=== PATIENT | female | born 1975 | race Two or more races ===

== ENCOUNTER → 2016-04-03 | Outpatient (CLI) | payer OTHER ==
[2016-04-03 16:57] LABS: ABSOLUTE EOSINOPHILS # (AUTO) 0.2 10^3/uL (0.0-0.6); ABSOLUTE LYMPHOCYTES (AUTO) 1.7 10^3/uL (0.5-4.7); ABSOLUTE MONOCYTES (AUTO) 0.3 10^3/uL (0.1-1.4); ABSOLUTE NEUT (AUTO) 2.9 10^3/uL (1.7-8.2); BASOPHILS % (AUTO) 0.8 % (0-2); EOSINOPHILS % (AUTO) 4.7 % (0-6); HEMATOCRIT 39.2 % (36.0-47.0); HEMOGLOBIN 13.5 g/dL (12.0-15.5); HGB HCT DIFFERENCE 1.3; LYMPHOCYTES % (AUTO) 33.4 % (13-45); MEAN CORPUSCULAR HGB CONC 34.4 g/dL (32.0-36.0); MEAN CORPUSCULAR VOLUME 93 fl (80-97); MONOCYTES % (AUTO) 5.5 % (3-13); RED BLOOD COUNT 4.21 10^6/uL (3.72-5.28); RED CELL DISTRIBUTION WIDTH 13.7 % (11.5-14.0); SEGMENTED NEUTROPHILS % (AUTO) 55.6 % (42-78); WHITE BLOOD COUNT 5.2 10^3/uL (4.0-10.5)
[2016-04-03 17:17] LABS: ALBUMIN 4.2 g/dL (3.5-5.0); BILIRUBIN,TOTAL 0.4 mg/dL (0.2-1.3); TOTAL PROTEIN 6.5 g/dL (6.3-8.2)
== END ==
LOC: OD 15:19
DX: G40.909 Epilepsy, unspecified, not intractable, without status epilepticus (principal)
CPT/HCPCS: 36415; 80076; 80168; 85025

== ENCOUNTER → 2016-05-31 | Outpatient (CLI) | payer OTHER ==
[2016-05-31 12:35] LABS: ABSOLUTE EOSINOPHILS # (AUTO) 0.1 10^3/uL (0.0-0.6); ABSOLUTE MONOCYTES (AUTO) 0.4 10^3/uL (0.1-1.4); ABSOLUTE NEUT (AUTO) 4.1 10^3/uL (1.7-8.2); BASOPHILS % (AUTO) 0.5 % (0-2); EOSINOPHILS % (AUTO) 1.7 % (0-6); HEMATOCRIT 44.5 % (36.0-47.0); HEMOGLOBIN 15.2 g/dL (12.0-15.5); HGB HCT DIFFERENCE 1.1; LYMPHOCYTES % (AUTO) 30.3 % (13-45); MEAN CORPUSCULAR HEMOGLOBIN 32.4 pg (27.0-33.4); MEAN CORPUSCULAR HGB CONC 34.2 g/dL (32.0-36.0); MEAN CORPUSCULAR VOLUME 95 fl (80-97); MONOCYTES % (AUTO) 5.5 % (3-13); RED CELL DISTRIBUTION WIDTH 13.2 % (11.5-14.0); WHITE BLOOD COUNT 6.6 10^3/uL (4.0-10.5)
[2016-05-31 13:04] LABS: ALANINE AMINOTRANSFERASE 22 U/L (9-52); ALBUMIN 4.7 g/dL (3.5-5.0); ALKALINE PHOSPHATASE 85 U/L (38-126); ANION GAP 13 (5-19); ASPARTATE AMINO TRANSFERASE 20 U/L (14-36); BILIRUBIN,TOTAL 0.6 mg/dL (0.2-1.3); BLOOD UREA NITROGEN 12 mg/dL (7-20); CALCIUM 10.2 mg/dL (8.4-10.2); CARBON DIOXIDE 23 mmol/L (22-30); CHLORIDE 103 mmol/L (98-107); CHOLESTEROL 188.87 mg/dL (0-200); CREATININE RESULT 0.74 mg/dL (0.52-1.25); Direct HDL 43 mg/dL (>40); GLUCOSE 94 mg/dL (75-110); POTASSIUM 4.9 mmol/L (3.6-5.0); TOTAL PROTEIN 7.8 g/dL (6.3-8.2); TRIGLYCERIDES 283 mg/dL (<150)
[2016-05-31 13:15] LABS: DIRECT LDL 89 mg/dL (<100)
[2016-05-31 13:16] LABS: VLDL CHOLESTEROL 56.6 mg/dL (10-31)
== END ==
LOC: CCC 10:45
DX: G40.909 Epilepsy, unspecified, not intractable, without status epilepticus (principal); Z79.899 Other long term (current) drug therapy
CPT/HCPCS: 36415; 80053; 80061; 83036; 84443; 85025

== ENCOUNTER 2017-07-07 19:16 | Emergency (ER) | payer MEDICAID, OTHER ==
[2017-07-07 20:35] LABS: ABSOLUTE EOSINOPHILS # (AUTO) 0.1 10^3/uL (0.0-0.6); ABSOLUTE LYMPHOCYTES (AUTO) 1.9 10^3/uL (0.5-4.7); ABSOLUTE MONOCYTES (AUTO) 0.4 10^3/uL (0.1-1.4); ABSOLUTE NEUT (AUTO) 3.2 10^3/uL (1.7-8.2); BASOPHILS % (AUTO) 0.4 % (0-2); EOSINOPHILS % (AUTO) 1.3 % (0-6); HEMATOCRIT 41.7 % (36.0-47.0); HEMOGLOBIN 14.2 g/dL (12.0-15.5); LYMPHOCYTES % (AUTO) 34.9 % (13-45); MEAN CORPUSCULAR VOLUME 91 fl (80-97); MONOCYTES % (AUTO) 6.4 % (3-13); PLATELET COUNT 172 10^3/uL (150-450); RED BLOOD COUNT 4.57 10^6/uL (3.72-5.28); RED CELL DISTRIBUTION WIDTH 15.1 % (11.5-14.0); TOTAL CELLS COUNTED % (AUTO) 100 %; WHITE BLOOD COUNT 5.5 10^3/uL (4.0-10.5)
[2017-07-07 20:41] LABS: APPEARANCE,URINE SLIGHTLY-CLOUDY; BILIRUBIN,URINE NEGATIVE (NEGATIVE); COLOR,URINE YELLOW; GLUCOSE, URINE NEGATIVE (NEGATIVE); KETONES,URINE NEGATIVE (NEGATIVE); LEUKOCYTE ESTERASE,URINE NEGATIVE (NEGATIVE); NITRITE,URINE NEGATIVE (NEGATIVE); PROTEIN,URINE NEGATIVE (NEGATIVE); URINE SPECIFIC GRAVITY 1.014; UROBILINOGEN,URINE NEGATIVE mg/dL (<2.0)
[2017-07-07 20:55] LABS: ALANINE AMINOTRANSFERASE 37 U/L (9-52); ALKALINE PHOSPHATASE 76 U/L (38-126); ANION GAP 11 (5-19); ASPARTATE AMINO TRANSFERASE 34 U/L (14-36); BILIRUBIN,DIRECT 0.3 mg/dL (0.0-0.4); BILIRUBIN,TOTAL 0.4 mg/dL (0.2-1.3); BLOOD UREA NITROGEN 4 mg/dL (7-20); CALCIUM 9.9 mg/dL (8.4-10.2); CARBON DIOXIDE 27 mmol/L (22-30); CHLORIDE 107 mmol/L (98-107); GLUCOSE 104 mg/dL (75-110); LIPASE 84.3 U/L (23-300); POTASSIUM 4.1 mmol/L (3.6-5.0); SODIUM 144.8 mmol/L (137-145); TOTAL PROTEIN 7.1 g/dL (6.3-8.2)
[2017-07-07] MEDS ORDERED: NORMAL SALINE 1000 ML 1,000 ML IV ONE (20:58)
--- NOTE | 2017-07-07 21:00 | ER Document Report ---
ED Medical Screen (RME) - General Chief Complaint: Lower Abdominal Pain Stated Complaint: PELVIC PAIN Time Seen by Provider: 07/07/17 20:58 Notes: Patient is currently on Clomid to try and get . She states she had 3 positive test at home but a negative one at the [facility] office today. She states her [employer] doctor referred her here to the emergency department to rule out an ectopic. Patient request a serum quantitative hCG. She has lower abdominal severe pelvic pain. She has no vaginal discharge or bleeding. No vomiting. TRAVEL OUTSIDE OF THE [place] IN LAST 30 DAYS: No - Related Data Allergies/Adverse Reactions: codeine Allergy (Verified 07/07/17 19:24) iodine Allergy (Verified 07/07/17 19:24) latex Allergy (Verified 07/07/17 19:24) Penicillins Allergy (Verified 07/07/17 19:24) Past Medical History - Social History Chew tobacco use (# tins/day): Yes Frequency of alcohol use: None Renal/ Medical History: Denies: Hx Peritoneal Dialysis Physical Exam - Vital signs Vitals: Temp Pulse Resp BP Pulse Ox 97.9 F 81 16 100/67 100 07/07/17 19:38 07/07/17 19:38 07/07/17 19:38 07/07/17 19:38 07/07/17 19:38 Course - Vital Signs Vital signs: Temp Pulse Resp BP Pulse Ox 97.9 F 81 16 100/67 100 07/07/17 19:38 07/07/17 19:38 07/07/17 19:38 07/07/17 19:38 07/07/17 19:38 - Laboratory Result Diagrams: 07/07/17 20:05 07/07/17 20:05 Laboratory results interpreted by me: 07/07/17 07/07/17 20:05 20:05 RDW 15.1 H Urine Ascorbic Acid 40 H
--- NOTE | 2017-07-07 22:35 | ER Document Report ---
ED General - General Chief Complaint: Lower Abdominal Pain Stated Complaint: PELVIC PAIN Time Seen by Provider: 07/07/17 20:58 Notes: Patient is a 41-year-old female who presents with complaint of pelvic pain. Pelvic pains and left sides been ongoing for approximately 2 weeks. No vomiting. No diarrhea. No vaginal bleeding or discharge. She proximally 5 days late on her menstrual period. She is currently on Clomid. This is actually being managed by her primary care doctor. She says she does not see an [employer] doctor. She says since starting Clomid she has been having some cramping and pain in the left lower quadrant. She had positive test last week. And then again this week. Today she rate 1 for repeat evaluation she was still having pain in her test was negative. She is therefore referred to the ER by her primary care doctor. She has not had an ultrasound. She has not had a pelvic exam. She denies any fevers. No other complaints at this time. TRAVEL OUTSIDE OF THE [place] IN LAST 30 DAYS: No - Related Data Allergies/Adverse Reactions: codeine Allergy (Verified 07/07/17 19:24) iodine Allergy (Verified 07/07/17 19:24) latex Allergy (Verified 07/07/17 19:24) Penicillins Allergy (Verified 07/07/17 19:24) Past Medical History - Social History Smoking Status: Former Smoker Chew tobacco use (# tins/day): Yes Frequency of alcohol use: None Drug Abuse: None Family History: Reviewed & Not Pertinent Patient has suicidal ideation: No Patient has homicidal ideation: No Renal/ Medical History: Denies: Hx Peritoneal Dialysis Review of Systems - Review of Systems Notes: My Normal Review Basic REVIEW OF SYSTEMS: CONSTITUTIONAL : Denies fever, chills, or sweats. Denies recent illness. RESPIRATORY: Denies cough, cold, or chest congestion. Denies shortness of breath, difficulty breathing, or wheezing. GASTROINTESTINAL: Pain over left lower quadrant and left pelvis. Denies nausea , vomiting, or diarrhea. GENITOURINARY: Denies difficulty urinating, painful urination, burning, frequency, or blood in urine. FEMALE GENITOURINARY: Denies vaginal bleeding, abnormal or irregular periods. Has left sided pelvic pain MUSCULOSKELETAL: Denies neck or back pain or joint pain or swelling. SKIN: Denies rash or skin lesions. NEUROLOGICAL: Denies altered mental status or loss of consciousness. ALL OTHER SYSTEMS REVIEWED AND NEGATIVE. Physical Exam - Vital signs Vitals: Temp Pulse Resp BP Pulse Ox 97.9 F 81 16 100/67 100 07/07/17 19:38 07/07/17 19:38 07/07/17 19:38 07/07/17 19:38 07/07/17 19:38 - Notes Notes: General Appearance: Well nourished, alert, cooperative, no acute distress, moderate obvious discomfort. Vitals: reviewed, See vital signs table. Eyes: PERRL, EOMI, Conjuctiva clear Mouth: No decreasd moisture Lungs: No wheezing, No rales, No rhonci, No accessory muscle use, good air exchange bilaterally. Heart: Normal rate, Regular rythm, No murmur, no rub Abdomen: Normal BS, soft, No rigidity, Some left lower quadrant pain No guarding , no rebound, Pelvic: Normal external genitalia. No abnormal vaginal discharge. No blood in vaginal vault. No pain on exam Extremities: strength 5/5 in all extremities, good pulses in all extremities, no swelling or tenderness in the extremities, no edema. Skin: warm, dry, appropriate color, no rash Neuro: speech clear, oriented x 3, normal affect, responds appropriately to questions. Course - Re-evaluation Re-evalutation: 07/07/17 23:18 Patient just had a seizure at the end of her ultrasound. She has been off her seizure medications now and these were replaced with Valium because she is trying to get . Her previous seizure medications are phenobarbital as well as Tegretol. She had a dose of Valium before going over to the ultrasound. I informed her that she could take this. She said that she was late in taking this. Seizure lasted approximately 2 minutes. She had a very short postictal phase and now is awake and alert and well-appearing. I will give her IV loading dose phenobarbital being that she says this is what typically controls her seizures are best. 07/08/17 01:46 Patient has had no further seizures. I went in depth more by her seizure history. Patient was on phenobarbital and Trileptal prior to being stopped approximately 9 months ago. She was then switched to Valium 10 mg 4 times a day. Patient says that she actually has not had the Valium in the last week until she took 1 dose today because "I have been having some much pain". Pain started after she started the Clomid. She says that despite being on the Valium over the last several months she is has a seizure almost every day. She said when she was on the Trileptal and phenobarbital she never had seizures and was seizure-free for approximately a year while on these medications. She is not seeing a neurologist currently. The only doctor she sees is her family medicine doctor. They are managing both her seizures and her attempt at getting . I informed the patient that with her seizure history that she is more high risk for the attempt to get and therefore she should follow with present [facility] doctor as well as neurologist. I informed her that there more specifically trained in her care that she needs. Patient agrees with this. Patient has been off her Valium now for a week and therefore I do not feel that it needs to be tapered down. We will start her back on low doses of phenobarbital and Tegretol and have her follow-up with her doctor for recheck of her levels and have them adjust medications appropriately. I will refer her to both neurologist [facility]. She said she seen Dr. Shen in the past and she likes Dr. Shen therefore I will refer her back to Dr. Shen. Encourage patient to return to ER if she has recurrent seizures, fevers, worsening pain, or if she feels unwell. I suspect her pelvic pain is likely is related to the Clomid being that the pain started when she received the Clomid. Patient also has some signs of bacterial vaginosis on wet prep and therefore we will treat her bacterial vaginosis. 07/08/17 01:49 Dictation of this chart was performed using voice recognition software; therefore, there may be some unintended grammatical errors. - Vital Signs Vital signs: Temp Pulse Resp BP Pulse Ox 97.9 F 81 11 L 127/77 H 99 07/07/17 19:38 07/07/17 19:38 07/07/17 23:24 07/07/17 23:24 07/07/17 23:24 - Laboratory Result Diagrams: 07/07/17 20:05 07/07/17 20:05 Laboratory results interpreted by me: 04/16/18 04/16/18 04/16/18 20:05 20:05 20:05 RDW 15.1 H BUN 4 L Urine Ascorbic Acid 40 H Discharge - Discharge Clinical Impression: Pelvic pain, Bacterial vaginosis, Seizure Condition: Good Disposition: HOME, SELF-CARE Additional Instructions: Please stop taking the Valium. You have now been off the Valium for a week and therefore you should not need to taper down at this point. I have started you back on Phenobarbital and Tegretol being that these managed your seizures well in the past. I will start you off at low dosages of both these medications. Your levels will needed to be checked and these medications titrated appropriately. Please be aware these meds can make you sleepy. You should never drive a motor vehicle due to your history of seizures. Please stop the Clomid and follow up with an OB physician for further options on how to manage getting . I have also included a referral to the neurologist, Dr. Sherwood, to follow up and help manage your seizures. Wait to start trying to get until you have discussed your options with both the OB physician and neurologist. Please return tot he ER if you have worsening pain, fevers, intractable seizures, or feel unwell. Prescriptions: Ketorolac Tromethamine [Toradol 10 mg Tablet] 10 mg PO Q8HP PRN #12 tablet PRN Reason: Pain Scale Of 5 Carbamazepine [Tegretol 200 Mg Tablet] 200 mg PO BID #14 tablet Metronidazole [Flagyl 500 mg Tablet] 500 mg PO BID #14 tablet Phenobarbital [Phenobarbital 64.8 Mg Tablet] 64.8 mg PO BID #14 tablet Referrals: NOBLE SHERWOOD MD [NO LOCAL MD] - Follow up in 3-5 days EMANI SHEN MD [ACTIVE STAFF] - Follow up in 3-5 days
[2017-07-07] MEDS ORDERED: PHENOBARBITAL INJ 65 MG/ML VIAL IV ONE ×2 (23:15→23:16)
--- NOTE | 2017-07-07 23:49 | RADIOLOGY REPORT (SQ) ---
EXAM DESCRIPTION: U/S NON OB PEL TV W/DOPPLER COMPLETED DATE/TIME: 07/07/2017 11:16 pm REASON FOR STUDY: pelvic pain COMPARISON: None. TECHNIQUE: Dynamic and static grayscale images acquired of the pelvis via transvaginal approach and recorded on PACS. Additional selected color Doppler and spectral images recorded. LIMITATIONS: None. FINDINGS: UTERUS: Contour normal. No mass. ENDOMETRIAL STRIPE: No focal or generalized thickening. No masses. CERVIX: No nabothian cysts. RIGHT ADNEXUM: 3.4 cm complex right ovarian cyst. RIGHT OVARY AND DOPPLER: Normal size. .Normal arterial vascular flow without evidence for torsion. LEFT ADNEXUM: 2.8 cm complex left ovarian cyst. LEFT OVARY AND DOPPLER: Normal size. No worrisome masses. Normal arterial vascular flow without evide nce for torsion. FREE FLUID: Small amount of endometrial and cul-de-sac free fluid. OTHER: No other significant finding. MEASUREMENTS: UTERUS: 9.9 x 6.8 x 4.5 cm ENDOMETRIAL STRIPE: 8.3 mm RIGHT OVARY: 4.5 x 4.2 x 3.3 cm LEFT OVARY: 3.5 x 3.2 x 3.2 cm IMPRESSION: Bilateral complex ovarian cysts. Small amount of endometrial and cul-de-sac free fluid. TECHNICAL DOCUMENTATION: JOB ID: [id number] [id number] 2010 [employer]- All Rights Reserved Reading location - IP/workstation name: [email or web address]
[2017-07-08 01:19] LABS: RBCS (WET MOUNT) RARE RBCS SEEN; T.VAGINALIS (WET MOUNT) NO TRICHOMONAS SEEN; WBCS (WET MOUNT) RARE WBCS SEEN; YEAST (WET MOUNT) NO YEAST SEEN
[2017-07-08 01:20] LABS: BACTERIA (WET MOUNT) 3+ BACTERIA SEEN; EPITHELIALS (WET MOUNT) 3+ EPITHELIALS SEEN
[2017-07-08] MEDS ORDERED: METRONIDAZOLE 500 MG TABLET PO ONE (01:20)
[2017-07-08] MEDS ORDERED: KETOROLAC TROMETHAMINE INJ/PF 30 MG/1 ML SDV IV ONE (01:20)
[2017-07-08] MEDS ORDERED: KETOROLAC TROMETHAMINE INJ/PF 30 MG/1 ML SDV ONE (01:29)
[2017-07-08 02:21] VITALS: BP 100/62
[2017-07-08 02:45] LABS: CHLAM PCR NOT DETECTED (NOT DETECT); GON PCR NOT DETECTED (NOT DETECT)
== END 2017-07-08 02:16 | disposition home or self-care (01) ==
LOC: ER 19:16
DX: N76.0 Acute vaginitis (principal); B96.89 Other specified bacterial agents as the cause of diseases classified elsewhere; G40.909 Epilepsy, unspecified, not intractable, without status epilepticus; R10.2 Pelvic and perineal pain; R10.30 Lower abdominal pain, unspecified; Z88.6 Allergy status to analgesic agent; Z91.040 Latex allergy status; Z87.891 Personal history of nicotine dependence
CPT/HCPCS: 99284; 96361; 96374; 96375; 36415; 87210; 84702; 83690; 85025; 80053; 81001; 87491; 87591; 76830; 93976; J1885; J2560; J3490; J7030

== ENCOUNTER 2018-04-08 12:22 | Inpatient (IN) | payer SELFPAY ==
--- NOTE | 2018-04-08 12:42 | ER Document Report ---
ED Seizure <DAV GONZALEZ - Last Filed: 04/08/18 14:21> <HERNANDEZ GLOVER - Last Filed: 04/08/18 17:34> - General Stated Complaint: ALTERED MENTAL STATUS Time Seen by Provider: 04/08/18 12:28 Notes: 42-year-old female patient is brought the emergency room by EMS for altered mental status. EMS history is that the patient had a seizure about 10 PM last night and possibly struck her head. She was not acting right at that time, was allowed to go to bed at 11 PM. This morning she continues to be "not acting right". She was brought to the emergency room. Review of records and discussing the case with Ashok ROSAS at [facility], the patient received a prescription for diazepam 10 mg 4 times daily #120 on 03/25/2018. She had been off the Valium for a few months due to insurance reasons. She return to the clinic on 03/30/2018 and voluntarily turned in her diazepam and they disposed of it and they prescribed phenobarbital 100 mg tablets to start at 100mg 3 times daily for 5 days, then 200mg 3 times daily for 5 days. There was not a clear indication for starting her on diazepam 10 mg 4 times daily after she had been off the medication for so many months. This time the patient's speech is deliberate and slurred, she does seem to be under the influence of something. (HERNANDEZ GLOVER) - Related Data Allergies/Adverse Reactions: codeine Allergy (Verified 07/07/17 19:24) iodine Allergy (Verified 07/07/17 19:24) latex Allergy (Verified 07/07/17 19:24) Penicillins Allergy (Verified 07/07/17 19:24) Past Medical History - General Information source: [facility] Records[facility] Social History Smoking Status: Smoker,Current Status Unk Family History: Reviewed & Not Pertinent Neurological Medical History: Reports: Hx Seizures <DAV GONZALEZ - Last Filed: 04/08/18 14:21> Review of Systems - Review of Systems Constitutional: No symptoms reported EENT: No symptoms reported Cardiovascular: No symptoms reported Respiratory: No symptoms reported Gastrointestinal: No symptoms reported Genitourinary: No symptoms reported Female Genitourinary: No symptoms reported Musculoskeletal: No symptoms reported Skin: No symptoms reported Hematologic/Lymphatic: No symptoms reported Neurological/Psychological: See HPI, Seizure -: Yes All other systems reviewed and negative <DAV GONZALEZ - Last Filed: 04/08/18 14:21> Physical Exam <DAV GONZALEZ - Last Filed: 04/08/18 14:21> - Vital signs Vitals: Pulse Resp BP Pulse Ox 74 19 85/53 L 96 04/08/18 12:45 04/08/18 12:45 04/08/18 12:45 04/08/18 12:45 - Notes Notes: Physical Exam: General: Drowsy but alert, seemingly deliberate slurred speech. HEENT: Normocephalic. Atraumatic, no hematoma or step-offs. PERRL. Extraocular movements intact. Oropharynx clear. States there is no where on her head that hurts from the fall yesterday where she reportedly hit her head. Dry oral muc boris. Neck: Supple. Non-tender. Respiratory: No respiratory distress. Clear and equal breath sounds bilaterally. Cardiovascular: Regular rate and rhythm. Abdominal: Normal Inspection. Non-tender. No distension. Normal Bowel Sounds. Back: Non-tender. No deformity or step off. Extremities: Moves all four extremities. Upper extremities: Normal inspection. Normal ROM. Lower extremities: Normal inspection. No edema. Normal ROM. Neurological: Seemingly deliberate slurred speech but alert and oriented x4, able to answer questions and follow commands. Psychological: Bleary eyed, thick slurred deliberate speech. Skin: Warm. Dry. Normal color. (DAV GONZALEZ) Course - Laboratory Result Diagrams: 04/08/18 12:35 04/08/18 12:35 <DAV GONZALEZ - Last Filed: 04/08/18 14:21> - Laboratory Result Diagrams: 04/08/18 12:35 04/08/18 12:35 - Diagnostic Test Radiology reviewed: Image reviewed, Reports reviewed - CT scan is unremarkable. - EKG Interpretation by Me EKG shows normal: Sinus rhythm, [place], Intervals, QRS Complexes. abnormal: ST-T Waves - Jaswant-lateral T abnormalities Rate: Normal - 70 Rhythm: NSR [place]/QRS: Right axis deviation - Consults Dr. Gore Time consulted: 17:00 Consulted provider: will come to ER <HERNANDEZ GLOVER - Last Filed: 04/08/18 17:34> - Re-evaluation Re-evalutation: 04/08/18 15:29 The patient's urine drug screen is positive for benzodiazepines. The history I got from her prescribing doctor was that she returned all of her diazepam when she came to the office on 03/30/2018, after filling the prescription on 03/25/2018. She is obviously getting benzodiazepines from somewhere. Her drug screen is positive for phenobarbital, she is supposed to be taking this medication now. We cannot get drug levels in the emergency room to see if that is part of her mental status problem. (HERNANDEZ GLOVER) - Vital Signs Vital signs: Temp Pulse Resp BP Pulse Ox 98.5 F 73 15 94/64 L 97 04/08/18 16:00 04/08/18 16:00 04/08/18 16:00 04/08/18 16:00 04/08/18 16:00 - Laboratory Laboratory results interpreted by me: 04/08/18 04/08/18 12:35 12:55 Urine Urobilinogen 2.0 H Acetaminophen < 10 L Critical Care Note - Critical Care Note Total time excluding time spent on procedures (mins): 45 <HERNANDEZ GLOVER - Last Filed: 04/08/18 17:34> Discharge <DAV GONZALEZ - Last Filed: 04/08/18 14:21> - Discharge Admitting Provider: Hospitalist Unit Admitted: IMCU <HERNANDEZ GLOVER - Last Filed: 04/08/18 17:34> - Discharge Clinical Impression: Altered mental status Qualifiers: Altered mental status type: unspecified Qualified Code(s): R41.82 - Altered mental status, unspecified Overdose Qualifiers: Encounter type: initial encounter Injury intent: undetermined intent Qualified Code(s): T50.904A - Poisoning by unspecified drugs, medicaments and biological substances, undetermined, initial encounter Hypotension Qualifiers: Hypotension type: unspecified hypotension type Qualified Code(s): I95.9 - Hypotension, unspecified Condition: Stable Disposition: ADMITTED INPATIENT Scribe Attestation: 04/08/18 15:41 I personally performed the services described in the documentation, reviewed and edited the documentation which was dictated to the scribe in my presence, and it accurately records my words and actions. (HERNANDEZ GLOVER)
[2018-04-08 12:51] LABS: ABSOLUTE EOSINOPHILS # (AUTO) 0.1 10^3/uL (0.0-0.6); ABSOLUTE LYMPHOCYTES (AUTO) 1.7 10^3/uL (0.5-4.7); ABSOLUTE MONOCYTES (AUTO) 0.3 10^3/uL (0.1-1.4); ABSOLUTE NEUT (AUTO) 1.9 10^3/uL (1.7-8.2); BASOPHILS % (AUTO) 0.8 % (0-2); EOSINOPHILS % (AUTO) 1.8 % (0-6); HEMATOCRIT 44.3 % (36.0-47.0); HEMOGLOBIN 15.2 g/dL (12.0-15.5); MEAN CORPUSCULAR HEMOGLOBIN 31.8 pg (27.0-33.4); MEAN CORPUSCULAR HGB CONC 34.3 g/dL (32.0-36.0); MEAN CORPUSCULAR VOLUME 93 fl (80-97); MONOCYTES % (AUTO) 7.8 % (3-13); PLATELET COUNT 192 10^3/uL (150-450); RED BLOOD COUNT 4.79 10^6/uL (3.72-5.28); RED CELL DISTRIBUTION WIDTH 12.8 % (11.5-14.0); SEGMENTED NEUTROPHILS % (AUTO) 46.6 % (42-78); TOTAL CELLS COUNTED % (AUTO) 100 %
[2018-04-08 13:13] LABS: APPEARANCE,URINE CLEAR; BILIRUBIN,URINE NEGATIVE (NEGATIVE); COLOR,URINE YELLOW; GLUCOSE, URINE NEGATIVE (NEGATIVE); KETONES,URINE NEGATIVE (NEGATIVE); LEUKOCYTE ESTERASE,URINE NEGATIVE (NEGATIVE); NITRITE,URINE NEGATIVE (NEGATIVE); PROTEIN,URINE NEGATIVE (NEGATIVE); URINE SPECIFIC GRAVITY 1.017
[2018-04-08 13:20] LABS: ALANINE AMINOTRANSFERASE 18 U/L (9-52); ALBUMIN 3.9 g/dL (3.5-5.0); ALKALINE PHOSPHATASE 111 U/L (38-126); ANION GAP 8 (5-19); ASPARTATE AMINO TRANSFERASE 33 U/L (14-36); BILIRUBIN,DIRECT 0.3 mg/dL (0.0-0.4); BILIRUBIN,TOTAL 0.4 mg/dL (0.2-1.3); BLOOD UREA NITROGEN 9 mg/dL (7-20); CALCIUM 8.6 mg/dL (8.4-10.2); CARBON DIOXIDE 29 mmol/L (22-30); CHLORIDE 103 mmol/L (98-107); GLUCOSE 94 mg/dL (75-110); POTASSIUM 4.2 mmol/L (3.6-5.0); SODIUM 139.9 mmol/L (137-145)
--- NOTE | 2018-04-08 13:20 | RADIOLOGY REPORT (SQ) ---
EXAM DESCRIPTION: CT HEAD WITHOUT COMPLETED DATE/TIME: 04/08/2018 1:12 pm REASON FOR STUDY: Altered mental status COMPARISON: None. TECHNIQUE: Axial images acquired through the brain without intravenous contrast. Images reviewed wi th bone, brain and subdural windows. Images stored on PACS. All CT scanners at this facility use dose modulation, iterative reconstruction, and/or weight based d osing when appropriate to reduce radiation dose to as low as reasonably achievable (ALARA). [facility]: Dose Right [facility]: CareDose [facility]: Dose Right [facility]: Teradose 4D [facility]: Kabam RADIATION DOSE: mGy. LIMITATIONS: None. FINDINGS: VENTRICLES: Normal size and contour. CEREBRUM: No masses. No hemorrhage. No midline shift. No evidence for acute infarction. Normal gra y/white matter differentiation. No areas of low density in the white matter. CEREBELLUM: No masses. No hemorrhage. No alteration of density. No evidence for acute infarction. EXTRAAXIAL SPACES: No fluid collections. No masses. ORBITS AND GLOBE: No intra- or extraconal masses. Normal contour of globe without masses. CALVARIUM: No fracture. PARANASAL SINUSES: No fluid or mucosal thickening. SOFT TISSUES: No mass or hematoma. OTHER: No other significant finding. IMPRESSION: NORMAL BRAIN CT WITHOUT CONTRAST. EVIDENCE OF ACUTE STROKE: NO. COMMENT: Quality ID # [id number]: Final reports with documentation of one or more dose reduction techniques (e.g., Automated exposure control, adjustment of the mA and/or kV according to patient size, use of iterative reconstruction technique) TECHNICAL DOCUMENTATION: JOB ID: [id number] [employer]- All Rights Reserved Reading location - IP/workstation name: [email or web address]
[2018-04-08 13:22] LABS: ALCOHOL < 10 mg/dL (NONE DETECTED)
[2018-04-08 13:27] LABS: URINE AMPHETAMINES SCREEN NEGATIVE; URINE BARBITURATES SCREEN UNCONFIRMED POSITIVE; URINE BENZODIAZEPINES SCREEN UNCONFIRMED POSITIVE; URINE COCAINE SCREEN NEGATIVE; URINE MARIJUANA (THC) SCREEN NEGATIVE; URINE METHADONE SCREEN NEGATIVE; URINE PHENCYCLIDINE SCREEN NEGATIVE
[2018-04-08] MEDS: NORMAL SALINE 1000 ML 1,000 ML IV PRN ×2 (14:40→15:50)
[2018-04-08] MEDS ORDERED: PHENYTOIN SODIUM INJ/PF 250 MG/5 ML SDV IV ONE (15:39)
[2018-04-08 16:51] LABS: ACETAMINOPHEN < 10 ug/mL (10-30)
--- NOTE | 2018-04-08 17:54 | EKG REPORT ---
SEVERITY:- BORDERLINE ECG - SINUS RHYTHM BORDERLINE RIGHT AXIS DEVIATION BORDERLINE T ABNORMALITIES, ANT-LAT LEADS : Confirmed by: Enrique Belle 08-Apr-2018 17:54:20
--- NOTE | 2018-04-08 18:05 | RADIOLOGY REPORT (SQ) ---
EXAM DESCRIPTION: CHEST SINGLE VIEW COMPLETED DATE/TIME: 04/08/2018 5:56 pm REASON FOR STUDY: confused,says she was dx w/ PNA recently COMPARISON: None. EXAM PARAMETERS: NUMBER OF VIEWS: One view. TECHNIQUE: Single frontal radiographic view of the chest acquired. RADIATION DOSE: NA LIMITATIONS: None. FINDINGS: LUNGS AND PLEURA: No opacities, masses or pneumothorax. No pleural effusion. MEDIASTINUM AND HILAR STRUCTURES: No masses. Contour normal. HEART AND VASCULAR STRUCTURES: Heart normal in size. Normal vasculature. BONES: No acute findings. HARDWARE: None in the chest. OTHER: No other significant finding. IMPRESSION: NO ACUTE RADIOGRAPHIC FINDING IN THE CHEST. TECHNICAL DOCUMENTATION: JOB ID: [id number] [employer]- All Rights Reserved Reading location - IP/workstation name: [email or web address]
[2018-04-08] MEDS ORDERED: DIAZEPAM INJ 10 MG/2 ML DISP.SYRIN IV PRN (18:14)
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
[2018-04-08] MEDS: HEPARIN SOD (PORCINE) 5,000 UNIT/ML 1 ML SYRINGE SUBCUT SCH (21:22)
[2018-04-08] MEDS: LEVETIRACETAM 500 MG/NACL-ISO 500 MG/100 ML RTUPB IV SCH (21:22)
[2018-04-08] MEDS ORDERED: CEFTRIAXONE 1 GM/D5W RTU 1 GM/50 ML RTUPB IV SCH (22:00)
[2018-04-09] MEDS: LEVETIRACETAM 500 MG/NACL-ISO 500 MG/100 ML RTUPB IV SCH ×2 (09:15→21:27)
[2018-04-09] MEDS: HEPARIN SOD (PORCINE) 5,000 UNIT/ML 1 ML SYRINGE SUBCUT SCH ×2 (09:19→21:27)
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
[2018-04-09] MEDS: HALOPERIDOL LACTATE INJ 5 MG/1 ML VIAL IV PRN (18:49)
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
[2018-04-10] MEDS ORDERED: ACETAMINOPHEN 325 MG TABLET PO PRN (08:51)
[2018-04-10] MEDS ORDERED: KETOROLAC TROMETHAMINE INJ/PF 30 MG/1 ML SDV IV ONE (08:51)
[2018-04-10] MEDS: LEVETIRACETAM 500 MG/NACL-ISO 500 MG/100 ML RTUPB IV SCH (09:25)
[2018-04-10] MEDS: HEPARIN SOD (PORCINE) 5,000 UNIT/ML 1 ML SYRINGE SUBCUT SCH ×2 (09:26→22:20)
[2018-04-10] MEDS ORDERED: DIAZEPAM INJ 10 MG/2 ML DISP.SYRIN IV PRN (16:12)
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
[2018-04-10] MEDS ORDERED: ALPRAZOLAM 0.25 MG TABLET PO ONE (16:45)
[2018-04-10] MEDS: PANTOPRAZOLE SODIUM 40 MG VIAL IV SCH (16:46)
[2018-04-10] MEDS: HALOPERIDOL LACTATE INJ 5 MG/1 ML VIAL IV PRN (16:57)
[2018-04-10] MEDS: FLUOXETINE HCL 20 MG CAPSULE PO SCH (22:20)
[2018-04-10] MEDS: LEVETIRACETAM 500 MG TABLET PO SCH (22:20)
[2018-04-11] MEDS: FLUOXETINE HCL 20 MG CAPSULE PO SCH ×2 (06:18→15:07)
[2018-04-11] MEDS: LEVETIRACETAM 500 MG TABLET PO SCH (11:12)
[2018-04-11] MEDS: PANTOPRAZOLE SODIUM 40 MG VIAL IV SCH (11:12)
[2018-04-11] MEDS: HEPARIN SOD (PORCINE) 5,000 UNIT/ML 1 ML SYRINGE SUBCUT SCH (11:13)
[2018-04-11 15:31] VITALS: BP 97/48
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
== END 2018-04-11 16:50 | disposition home or self-care (01) | DRG 101 ==
LOC: ER 12:22 → EH 17:30 → 3W 19:07
PROVIDERS: ADMIT Internal Medicine; ATTEND Internal Medicine
DX: G40.909 Epilepsy, unspecified, not intractable, without status epilepticus (principal); F41.9 Anxiety disorder, unspecified; Z88.6 Allergy status to analgesic agent; Z88.0 Allergy status to penicillin; Z88.9 Allergy status to unspecified drugs, medicaments and biological substances; Z91.040 Latex allergy status; M32.9 Systemic lupus erythematosus, unspecified; Z87.820 Personal history of traumatic brain injury; Z79.899 Other long term (current) drug therapy; R13.10 Dysphagia, unspecified; V89.2XXS Person injured in unspecified motor-vehicle accident, traffic, sequela
CPT/HCPCS: 36415; 70450; 71045; 80053; 80184; 80307; 81001; 84703; 85025; 93005; 93010; 95819; 96361; 96365; 99291; J0696; J1165; J1630; J1644; J1885; J1953; J3360; J7030; S0164

== ENCOUNTER → 2018-06-17 | Outpatient (CLI) | payer OTHER ==
[2018-06-17 14:08] LABS: ABSOLUTE BASOPHILS # (AUTO) 0.1 10^3/uL (0.0-0.2); ABSOLUTE EOSINOPHILS # (AUTO) 0.1 10^3/uL (0.0-0.6); ABSOLUTE LYMPHOCYTES (AUTO) 1.6 10^3/uL (0.5-4.7); ABSOLUTE MONOCYTES (AUTO) 0.4 10^3/uL (0.1-1.4); ABSOLUTE NEUT (AUTO) 5.3 10^3/uL (1.7-8.2); BASOPHILS % (AUTO) 0.7 % (0-2); EOSINOPHILS % (AUTO) 1.8 % (0-6); HEMATOCRIT 43.4 % (36.0-47.0); HEMOGLOBIN 14.8 g/dL (12.0-15.5); LYMPHOCYTES % (AUTO) 21.9 % (13-45); MEAN CORPUSCULAR HEMOGLOBIN 31.8 pg (27.0-33.4); MEAN CORPUSCULAR HGB CONC 34.2 g/dL (32.0-36.0); MEAN CORPUSCULAR VOLUME 93 fl (80-97); MONOCYTES % (AUTO) 4.8 % (3-13); PLATELET COUNT 252 10^3/uL (150-450); RED BLOOD COUNT 4.67 10^6/uL (3.72-5.28); RED CELL DISTRIBUTION WIDTH 14.4 % (11.5-14.0); SEGMENTED NEUTROPHILS % (AUTO) 70.8 % (42-78); TOTAL CELLS COUNTED % (AUTO) 100 %; WHITE BLOOD COUNT 7.5 10^3/uL (4.0-10.5)
[2018-06-17 14:27] LABS: ALANINE AMINOTRANSFERASE 14 U/L (9-52); ALBUMIN 4.3 g/dL (3.5-5.0); ALKALINE PHOSPHATASE 89 U/L (38-126); ANION GAP 10 (5-19); ASPARTATE AMINO TRANSFERASE 16 U/L (14-36); BILIRUBIN,DIRECT 0.3 mg/dL (0.0-0.4); BILIRUBIN,TOTAL 0.5 mg/dL (0.2-1.3); BLOOD UREA NITROGEN 10 mg/dL (7-20); CALCIUM 10.2 mg/dL (8.4-10.2); CARBON DIOXIDE 23 mmol/L (22-30); CHLORIDE 104 mmol/L (98-107); CHOLESTEROL 200.02 mg/dL (0-200); GLUCOSE 108 mg/dL (75-110); POTASSIUM 4.8 mmol/L (3.6-5.0); SODIUM 137.3 mmol/L (137-145); TOTAL PROTEIN 7.5 g/dL (6.3-8.2); TRIGLYCERIDES 268 mg/dL (<150)
[2018-06-17 14:38] LABS: DIRECT LDL 109 mg/dL (<100)
[2018-06-17 14:42] LABS: VLDL CHOLESTEROL 53.6 mg/dL (10-31)
[2018-06-18 07:43] LABS: HEPATITIS A AB IGM Negative (Negative); HEPATITIS B CORE AB IGM Negative (Negative); HEPATITS B SURFACE ANTIGEN Negative (Negative)
[2018-06-18 09:42] LABS: HEPATITIS C VIRUS ANTIBODY <0.1 s/co ratio (0.0-0.9)
== END ==
LOC: CCC 13:24
DX: G40.909 Epilepsy, unspecified, not intractable, without status epilepticus (principal); Z79.899 Other long term (current) drug therapy
CPT/HCPCS: 36415; 80053; 80061; 80074; 83036; 85025

== ENCOUNTER → 2019-05-17 | Outpatient (CLI) | payer OTHER ==
[2019-05-17 17:46] LABS: ABSOLUTE LYMPHOCYTES (AUTO) 1.5 10^3/uL (0.5-4.7); ABSOLUTE MONOCYTES (AUTO) 0.3 10^3/uL (0.1-1.4); ABSOLUTE NEUT (AUTO) 3.9 10^3/uL (1.7-8.2); BASOPHILS % (AUTO) 0.5 % (0-2); EOSINOPHILS % (AUTO) 0.3 % (0-6); HEMATOCRIT 44.9 % (36.0-47.0); HEMOGLOBIN 15.2 g/dL (12.0-15.5); MEAN CORPUSCULAR HEMOGLOBIN 31.8 pg (27.0-33.4); MEAN CORPUSCULAR HGB CONC 33.8 g/dL (32.0-36.0); MEAN CORPUSCULAR VOLUME 94 fl (80-97); MONOCYTES % (AUTO) 4.9 % (3-13); PLATELET COUNT 178 10^3/uL (150-450); RED BLOOD COUNT 4.77 10^6/uL (3.72-5.28); RED CELL DISTRIBUTION WIDTH 13.9 % (11.5-14.0); SEGMENTED NEUTROPHILS % (AUTO) 68.3 % (42-78); TOTAL CELLS COUNTED % (AUTO) 100 %; WHITE BLOOD COUNT 5.8 10^3/uL (4.0-10.5)
[2019-05-17 18:13] LABS: ALBUMIN 4.5 g/dL (3.5-5.0); ALKALINE PHOSPHATASE 82 U/L (38-126); ANION GAP 16 (5-19); ASPARTATE AMINO TRANSFERASE 23 U/L (14-36); BILIRUBIN,DIRECT 0.3 mg/dL (0.0-0.4); BILIRUBIN,TOTAL 0.6 mg/dL (0.2-1.3); BLOOD UREA NITROGEN 10 mg/dL (7-20); CALCIUM 9.6 mg/dL (8.4-10.2); CARBON DIOXIDE 16 mmol/L (22-30); CHLORIDE 109 mmol/L (98-107); CHOLESTEROL 212.91 mg/dL (0-200); GLUCOSE 89 mg/dL (75-110); POTASSIUM 3.6 mmol/L (3.6-5.0); TOTAL PROTEIN 7.7 g/dL (6.3-8.2); TRIGLYCERIDES 199 mg/dL (<150)
[2019-05-17 18:24] LABS: DIRECT LDL 141 mg/dL (<100)
[2019-05-17 18:29] LABS: VLDL CHOLESTEROL 39.8 mg/dL (10-31)
== END ==
LOC: CCC 16:50
DX: Z00.00 Encounter for general adult medical examination without abnormal findings (principal)
CPT/HCPCS: 36415; 80053; 80061; 83036; 85025

== ENCOUNTER → 2019-06-04 | Outpatient (CLI) | payer MEDICAID ==
--- NOTE | 2019-06-04 13:59 | RADIOLOGY REPORT (SQ) ---
EXAM DESCRIPTION: RIBS BILATERAL W/PA CHEST COMPLETED DATE/TIME: 06/04/2019 1:37 pm REASON FOR STUDY: LOW BACK PAIN M54.5 LOW BACK PAIN COMPARISON: None. NUMBER OF VIEWS: 5 TECHNIQUE: Images acquired of the right and left ribs in the area of focal concern. LIMITATIONS: None. FINDINGS: RIBS: Minimally displaced posterior left 9th rib fracture. Additional left 5th and 6th po sterior rib fractures with a more chronic appearance No additional fractures identified. No suspicio us osseous lesions. LUNGS: Limited exam. No obvious pneumothorax. No pleural effusion. OTHER: No other significant finding. IMPRESSION: Left posterior 9th rib fracture. Additional left 5th and 6th posterior rib fractures wi th a more chronic appearance. Recommend correlation with point tenderness. No pneumothorax. COMMENT: SITE OF TRAUMA/COMPLAINT MARKED/STAMP COMPLETED: NO. TECHNICAL DOCUMENTATION: JOB ID: [id number] 2010 [employer]- All Rights Reserved Reading location - IP/workstation name: [email or web address]
--- NOTE | 2019-06-04 15:24 | RADIOLOGY REPORT (SQ) ---
EXAM DESCRIPTION: LUMBAR SPINE COMPLETE COMPLETED DATE/TIME: 06/04/2019 1:37 pm REASON FOR STUDY: LOW BACK PAIN M54.5 LOW BACK PAIN COMPARISON: None. NUMBER OF VIEWS: Five views including obliques. TECHNIQUE: AP, lateral, oblique, and sacral radiographic images acquired of the lumbar spine. LIMITATIONS: None. FINDINGS: MINERALIZATION: Normal. SEGMENTATION: Normal. No transitional anatomy. ALIGNMENT: Straightening of the normal lumbar lordosis. VERTEBRAE: Maintained height. No fracture or worrisome bone lesion. DISCS: Mild disc height loss at L4-5. POSTERIOR ELEMENTS: Pedicles and facets are intact. No pars defect or posterior arch defects. HARDWARE: None in the spine. PARASPINAL SOFT TISSUES: Normal. PELVIS: Intact as visualized. No fractures or worrisome bone lesions. SI joints intact. OTHER: No other significant finding. IMPRESSION: No acute bony abnormality of the lumbar spine. Mild disc height loss at L4-5. TECHNICAL DOCUMENTATION: JOB ID: [id number] 2010 [employer]- All Rights Reserved Reading location - IP/workstation name: [email or web address]
== END ==
LOC: RAD 11:36
PROVIDERS: ATTEND Nurse Practitioner Family
DX: M54.5 Low back pain (principal); S22.42XD Multiple fractures of ribs, left side, subsequent encounter for fracture with routine healing; X58.XXXD Exposure to other specified factors, subsequent encounter
CPT/HCPCS: 71111; 72110

== ENCOUNTER → 2019-06-11 | Outpatient (CLI) | payer MEDICAID ==
[2019-06-11 12:48] LABS: ABSOLUTE EOSINOPHILS # (AUTO) 0.1 10^3/uL (0.0-0.6); ABSOLUTE LYMPHOCYTES (AUTO) 1.4 10^3/uL (0.5-4.7); ABSOLUTE MONOCYTES (AUTO) 0.2 10^3/uL (0.1-1.4); ABSOLUTE NEUT (AUTO) 2.8 10^3/uL (1.7-8.2); BASOPHILS % (AUTO) 0.7 % (0-2); EOSINOPHILS % (AUTO) 1.9 % (0-6); HEMATOCRIT 40.2 % (36.0-47.0); LYMPHOCYTES % (AUTO) 31.8 % (13-45); MEAN CORPUSCULAR HEMOGLOBIN 32.7 pg (27.0-33.4); MEAN CORPUSCULAR VOLUME 94 fl (80-97); MONOCYTES % (AUTO) 4.4 % (3-13); PLATELET COUNT 266 10^3/uL (150-450); RED BLOOD COUNT 4.29 10^6/uL (3.72-5.28); RED CELL DISTRIBUTION WIDTH 13.7 % (11.5-14.0); SEGMENTED NEUTROPHILS % (AUTO) 61.2 % (42-78); TOTAL CELLS COUNTED % (AUTO) 100 %; WHITE BLOOD COUNT 4.5 10^3/uL (4.0-10.5)
[2019-06-11 13:05] LABS: ALBUMIN 4.2 g/dL (3.5-5.0); ALKALINE PHOSPHATASE 108 U/L (38-126); ANION GAP 12 (5-19); ASPARTATE AMINO TRANSFERASE 26 U/L (14-36); BILIRUBIN,DIRECT 0.2 mg/dL (0.0-0.4); BILIRUBIN,TOTAL 0.2 mg/dL (0.2-1.3); BLOOD UREA NITROGEN 10 mg/dL (7-20); CALCIUM 9.5 mg/dL (8.4-10.2); CARBON DIOXIDE 21 mmol/L (22-30); CHLORIDE 105 mmol/L (98-107); GLUCOSE 96 mg/dL (75-110); POTASSIUM 4.7 mmol/L (3.6-5.0); TOTAL PROTEIN 7.4 g/dL (6.3-8.2)
--- NOTE | 2019-06-11 18:25 | EKG REPORT ---
SEVERITY:- NORMAL ECG - SINUS RHYTHM : Confirmed by: Elizabeth Choi MD 11-Jun-2019 18:25:09
== END ==
LOC: OD 11:52
PROVIDERS: ATTEND Nurse Practitioner Family
DX: I95.0 Idiopathic hypotension (principal); R42 Dizziness and giddiness; R53.83 Other fatigue
CPT/HCPCS: 36415; 80053; 84443; 85025; 93005; 93010

== ENCOUNTER → 2019-07-15 | Outpatient (CLI) | payer MEDICAID ==
--- NOTE | 2019-07-15 14:33 | RADIOLOGY REPORT (SQ) ---
EXAM DESCRIPTION: RIBS LEFT W/PA CHEST IMAGES COMPLETED DATE/TIME: 07/15/2019 2:13 pm REASON FOR STUDY: MID BACK PAIN M54.9 DORSALGIA, UNSPECIFIED COMPARISON: None. TECHNIQUE: Frontal view of the chest and additional views of the left ribs acquired. NUMBER OF VIEWS: Five view. LIMITATIONS: None. FINDINGS: FRONTAL CXR: No pneumothorax. No pleural effusion. No atelectasis or infiltrates. RIBS: Acute fracture left 9th posterolateral rib. Old fracture 6 posterior rib. OTHER: No other significant finding. IMPRESSION: Acute fracture left 9th rib. No pneumothorax or pulmonary contusion. COMMENT: SITE OF TRAUMA/COMPLAINT MARKED/STAMP COMPLETED: YES. TECHNICAL DOCUMENTATION: JOB ID: [id number] 2010 [employer]- All Rights Reserved Reading location - IP/workstation name: [email or web address]
== END ==
LOC: OD 13:52
PROVIDERS: ATTEND Nurse Practitioner Family
DX: S22.32XA Fracture of one rib, left side, initial encounter for closed fracture (principal); X58.XXXA Exposure to other specified factors, initial encounter

== ENCOUNTER 2019-09-18 05:51 | Emergency (ER) | payer MEDICAID ==
--- NOTE | 2019-09-18 07:14 | RADIOLOGY REPORT (SQ) ---
RIGHT RIB AND CHEST RADIOGRAPHS: 09/18/2019 12:00 AM CDT HISTORY: 43-year-old patient with right chest pain . TECHNIQUE: AP and oblique images of the right ribs are obtained. AP view of the chest was also obtained. COMPARISON: Chest radiograph dated 07/15/2019. FINDINGS: There are no findings to suggest a pneumothorax. There are no findings to suggest an acute, displaced right rib fracture or subluxation. The cardiomediastinal silhouette is normal in size.No pneumothorax is seen. No acute airspace opacities are seen. No discrete pleural effusion is apparent. IMPRESSION: There are no findings to suggest an acute, displaced fracture or subluxation within the right ribs. No acute airspace opacities are seen.
[2019-09-18] MEDS ORDERED: KETOROLAC TROMETHAMINE 60 MG/2 ML SDV IM ONE (12:29)
[2019-09-18 13:19] VITALS: BP 97/59
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
== END 2019-09-18 13:33 | disposition home or self-care (01) ==
LOC: ER 05:51
DX: S29.9XXA Unspecified injury of thorax, initial encounter (principal); S00.83XA Contusion of other part of head, initial encounter; R07.81 Pleurodynia; Y04.8XXA Assault by other bodily force, initial encounter; G40.909 Epilepsy, unspecified, not intractable, without status epilepticus; Z88.8 Allergy status to other drugs, medicaments and biological substances; Z88.0 Allergy status to penicillin
CPT/HCPCS: 99284; 96372; 71101; J1885